=== PATIENT | male | born 1945 | race Caucasian/White ===

== ENCOUNTER → 2016-04-28 | Day surgery (SDC) | payer OTHER ==
[~2016-04-28] MED LIST: CITALOPRAM HYDR40 MG PO; DURICEF500 MG PO; PERCOCET 325 MG1 TA2 PO; TOPROL XL 50MG50 MG PO; TRAZODONE HCL50 M1 PO
--- NOTE | 2016-04-28 09:40 | Operative Report ---
Operative/Inv Procedure Report Surgery Date: 04/28/16 Name of Procedure: Microlaryngoscopy with laser excision of right vocal cord lesion Pre-Operative Diagnosis: Vocal cord lesion, right Post-Operative Diagnosis: Same Estimated Blood Loss: scant Surgeon/Applications Architect: CHAVO LUU MD Anesthesia: general endotracheal tube Specimens: Right vocal cord lesion Microbiology: Right vocal cord lesion Complications: Non- Condition: Stable on leaving the OR Operative Indication: Vocal cord lesion, right Operative/Procedure Note Note: Patient was brought to the operating room. Placed on the operating table in supine position. First timeout was performed including patient's name, ID number and planned procedure. Then general oroendotracheal anesthesia was induced. #7 Laser tube was used and it was secured with tape over the left lip commissure. Next patient was positioned for microlaryngoscopy. Operating room table was rotated 90 away from the anesthesia team toward patient's right. Head was sterilely draped. Anterior commissure laryngoscope was then used and laryngoscopy was performed. A dental guard was used for protection of the upper teeth. Anterior commissure laryngoscope was then used and laryngoscopy was performed at first. The anterior commissure laryngoscope was introduced into the oral cavity , oropharynx, hypopharynx and larynx. Examination of the larynx and hypopharynx was then carried. Base of tongue, valleculae appeared to be clear both right and left piriform sinuses were clear. Epiglottis over the lingual and laryngeal surfaces was clear. Aryepiglottic folds were intact. Glottis was visualized. Right vocal cord had mildly raised lesion located over the posterior two thirds of the voval cord. left vocal cord was clear. posterior commisure was clear. Laryngoscope was fixed in place with suspension arm and the microscope and laser were connected. Laser was set on a power of 2 lorenzo continuous mode. At first microcups were used to remove most of the lesion. The lesion was very friable and bleeding. Specimen was submitted for pathology and cultures. Cottonoid geoff was saturated with adrenlaine solution and placed on the vocal cord for vasoconstriction. It was removed after few minutes. Now laser was used to remove the residual leaion along the entire length of the vocal cord.at the end vocal cord appeared to be claear and there was no bleeding. The procedure was completed. Microscope and laser were detached Laryngoscope was dismounted from the suspension apparatus and removed. Surgery was completed. Stomach was suctioned with an OG tube. The patient was reawakened, extubated and taken to the recovery room in good condition. There were no complications. Estimated blood loss was minimal. Findings: right vocal cord- slightly rised lesion located over the posterio two thirds of the vocal cord very friable and bleeding Discharge Disposition: Same Day Admissions
== END ==
LOC: STS 04-25 07:00
DX: C32.0 Malignant neoplasm of glottis (principal); R49.0 Dysphonia; F10.21 Alcohol dependence, in remission; Z87.891 Personal history of nicotine dependence; I10 Essential (primary) hypertension
CPT/HCPCS: 87070; 87075; 88305; J0131; J0171; J0690